=== PATIENT | male | born 1970 | race Caucasian/White ===

== ENCOUNTER 2017-03-24 19:59 | Emergency (ER) | payer MEDICARE, BC ==
[~2017-03-24] VITALS: Ht 167.6 cm; Wt 82.0 kg
[2017-03-24 20:00] VITALS: BP 154/68; PULSE 102; RESP 16; TEMP 98.6; O2SAT 98
--- NOTE | 2017-03-24 20:39 | PD ---
Physical Exam Time Seen by Provider: 20:37 Narrative 46yo M c/o left testicular pain and swelling since this morning. Denies dysuria , penile drainage. Eliseo fever, abd pain. +lower back and left groin pain. Patient seen in triage. VS reviewed. Awaiting bed placement. Data Data Last Documented VS Vital Signs Date Time Temp Pulse Resp B/P (MAP) Pulse Ox O2 Delivery O2 Flow Rate FiO2 03/24/17 20:00 98.6 102 16 154/68 (96) 98 Room Air MDM Supervised Visit with ZEINAB: Nohemi Li Mar 24, 2017 20:39
[2017-03-24 23:34] VITALS: BP 165/90; PULSE 70; RESP 18; O2SAT 98
--- NOTE | 2017-03-24 23:56 | PD ---
HPI Chief Complaint: Complaint Time Seen by Provider: 23:40 Travel History International Travel<30 days: No Contact w/Intl Traveler<30days: No Traveled to known affect area: No History of Present Illness HPI 46yo M with PMH of crohns disease presents to the ED with c/o left testicular pain and swelling after waking up today. Denies any fever, trauma, chest pain, sob, n/v, abdominal pain, penile discharge or rash, dysuria, hematuria. Denies any trauma. PFSH Past Medical History Hx Anticoagulant Therapy: No Diabetes: Yes Patient Takes Glucophage: No Diminished Hearing: No Gastrointestinal Disorders: Yes (CROHNS) Musculoskeletal: Yes (CHRONIC BACK PAIN) Psychiatric: Yes Respiratory: No Immunizations Current: Yes Past Surgical History Abdominal Surgery: Yes (SMALL BOWEL REMOVED AND COLOSTOMY, REVERSAL) Hysterectomy: No Other Surgery: Yes (endoscopy and colonoscopy 12/15/14, 12/23/14) Social History Alcohol Use: Yes (occ) Tobacco Use: No Substance Use: Yes (MARIJUANA, COCAINE, SHAKE(METH)) Allergies-Medications (Allergen,Severity, Reaction): Coded Allergies: adalimumab (Verified Allergy, Severe, 03/24/17) 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 SKIN: Focused skin assessment warm/dry. HEAD: Atraumatic. Normocephalic. EYES: Pupils equal and round. No scleral icterus. No injection or drainage. ENT: No nasal bleeding or discharge. Mucous membranes pink and moist. NECK: Trachea midline. No JVD. CARDIOVASCULAR: Regular rate and rhythm. No murmur appreciated. RESPIRATORY: No accessory muscle use. Clear to auscultation. Breath sounds equal bilaterally. GASTROINTESTINAL: Abdomen soft, non-tender, nondistended. No rebound tenderness or guarding. : +Left testicle swelling, and ttp in posterior testicle. No penile discharge or rash. MUSCULOSKELETAL: No obvious deformities. No clubbing. No cyanosis. No edema. NEUROLOGICAL: Awake and alert. No obvious cranial nerve deficits. Motor grossly within normal limits. Normal speech. PSYCHIATRIC: Appropriate mood and affect; insight and judgment normal. Data Data Last Documented VS Vital Signs Date Time Temp Pulse Resp B/P (MAP) Pulse Ox O2 Delivery O2 Flow Rate FiO2 03/24/17 23:34 70 18 165/90 (115) 98 Room Air 03/24/17 20:00 98.6 Orders Orders Us Testicles W Doppler (03/24/17 ) Ketorolac Inj (Toradol Inj) (03/25/17 00:00) Morphine Inj (Morphine Inj) (03/25/17 02:30) MDM Medical Decision Making Medical Screen Exam Complete: Yes Emergency Medical Condition: Yes Differential Diagnosis Epididymitis vs. orchitis vs. hydrocele Narrative Course 46yo M here with left testicle pain and swelling today. Pt is well appearing and did not take anything at home. Will give toradol and do US scrotum. Pt states pain improved after toradol but got worst after the ultrasound. Morphine given for pain. US showed moderate size mildly complex bilateral hydroceles. Testicles demonstrate no mass or signs of torsion. Epididymis is within normal limits. Pt has no fever and is well appearing. Will have pt follow up with urology as an outpatient. He was given a copy of the ultrasound report. Return precautions given. Diagnosis Primary Impression: Hydrocele Qualified Codes: N43.3 - Hydrocele, unspecified Referrals: Stevie Engel MD call for appointment Complex bilateral hydrocele Patient Instructions: General Instructions Departure Forms: Tests/Procedures Additional Instructions: Please follow up with urology in 3-7 days. Return to the ED if symptoms worsen. Med/Other Pt SpecificInfo: Prescription(s) given Scripts Ibuprofen (Ibuprofen) 600 Mg Tab 600 MG PO Q8H Y for PAIN, #20 TAB 0 Refills Prov: Jing Foote DO 03/25/17 Disposition: 01 DISCHARGE HOME Condition: Stable Jing Foote DO Mar 24, 2017 23:56
[2017-03-25] MEDS ORDERED: KETOROLAC TROMETHAMINE 60 MG/2 ML (IM) VIAL IM ONE
--- NOTE | 2017-03-25 01:04 | RADRPT ---
EXAM DATE/TIME: 03/25/2017 00:23 [facility] COMPARISON: No previous studies available for comparison. INDICATIONS : Testicular pain. MEDICAL HISTORY : Crohn's disease. Glasses. Chronic back pain. Substance use. Alcohol use. SURGICAL HISTORY : Colostomy reversal. Small bowel removed. ENCOUNTER: Initial ACUITY: 1 day PAIN SCORE: 8/10 LOCATION: Bilateral testicles. MEASUREMENTS: RIGHT TESTICLE: 4.3 x 3.2 x 2.9 cm LEFT TESTICLE: 4.6 x 3.2 x 3.6cm FINDINGS: RIGHT TESTICLE: Homogeneous echotexture without intra or extratesticular mass. Blood flow is symmetric and within no rmal limits. No varicocele. Moderate size hydrocele with internal echoes. Epididymis is within norm al limits. LEFT TESTICLE: Homogeneous echotexture without intra or extratesticular mass. Blood flow is symmetric and within no rmal limits. No varicocele. Moderate size hydrocele with a few internal echoes. Epididymis is withi n normal limits. SCROTUM: Within normal limits. CONCLUSION: 1. Moderate size mildly complex bilateral hydroceles. 2. Testicles demonstrate no mass or signs of torsion. Wil Carter MD on March 25, 2017 at 1:01 Board Certified Radiologist. This report was verified electronically.
[2017-03-25] MEDS ORDERED: MORPHINE SULFATE 4 MG/ML INJ IV PUSH ONE (02:30)
[2017-03-25] MEDS ORDERED: IBUP-232 PO (02:33)
== END 2017-03-25 02:52 | disposition home or self-care (01) ==
LOC: NEPC 19:59
DX: N43.3 Hydrocele, unspecified (principal); K50.90 Crohn's disease, unspecified, without complications; Z90.49 Acquired absence of other specified parts of digestive tract
CPT/HCPCS: 76870; 93975; 96372; 99285; J1885; J2270